=== PATIENT | male | born 1955 | race African-American/Black ===

== ENCOUNTER 2016-03-08 18:24 | Emergency (ER) | payer BC ==
[2016-03-08 18:43] VITALS: BP 165/95; PULSE 85; TEMP 98.6; BMI 40.1
--- NOTE | 2016-03-08 19:12 | PDOC ---
History of Present Illness <Sulaiman Melgoza - Last Filed: 03/08/16 19:10> - History of Present Illness Initial Comments: 03/08/16 19:12 The patient is a 60 year old male with a past medical hx of HTN who presents to the ED for evaluation of elevated blood pressure since today. The patient states he ran out of his blood pressure medication 2 weeks ago and has not been able to refill his prescription. He states he went to his Doctor today and his blood pressure was elevated. The patient was sent to the ED for further evaluation. He states he has no symptoms. The patient denies changes in vision, chest pain, palpitations The patient denies headache, ankle swelling The patient denies SOB, wheezing Surgical: Knee replacement (15 years ago), foot surgery Family hx: HTN, mother had a weak heart Social: No toxic habits reported Allergies: NKDA <Samaria Dallas - Last Filed: 03/08/16 19:28> - General Chief Complaint: Blood Pressure Problem Stated Complaint: HIGH BLOOD PRESSURE Time Seen by Provider: 03/08/16 19:08 Past History - Past Medical History Diabetes: Yes (NO MEDS. DIET CONTROLLED.) HTN: Yes Suicide Attempt (Hx): No - Surgical History Orthopedic Surgery: Yes (b/l knee replacement) - Psycho/Social/Smoking Cessation Hx Anxiety: Yes Suicidal Ideation: No Smoking Status: No Smoking History: Never smoked Number of Cigarettes Smoked Daily: 0 Information on smoking cessation initiated: No Hx Alcohol Use: No Drug/Substance Use Hx: No Substance Use Type: None Hx Substance Use Treatment: No <Sulaiman Melgoza - Last Filed: 03/08/16 19:10> <Samaria Dallas - Last Filed: 03/08/16 19:28> - Past Medical History Allergies/Adverse Reactions: Allergies Allergy/AdvReac Type Severity Reaction Status Date / Time No Known Allergies Allergy Verified 03/08/16 18:27 Home Medications: Ambulatory Orders Aspirin Coated [Ecotrin -] 81 mg PO DAILY 10/11/12 Doxepin HCl 10 mg PO HS 10/11/12 Fluphenazine HCl 10 mg PO HS 10/11/12 Hydrochlorothiazide [Hctz -] 25 mg PO DAILY 10/11/12 Losartan Potassium [Cozaar -] 100 mg PO DAILY 10/11/12 Temazepam [Restoril -] 30 mg PO HS 10/11/12 Alprazolam [Alprazolam ER] 0.5 mg PO QID 10/21/12 Paroxetine HCl [Paxil] 30 mg PO HS 10/21/12 Metoprolol Succinate [Toprol Xl -] 0 mg PO DAILY 03/08/16 Metoprolol Succinate [Toprol Xl -] 25 mg PO DAILY #7 tab.sr.24h 03/08/16 Rosuvastatin Calcium 0 mg PO 03/08/16 Review of Systems - Review of Systems Able to Perform ROS?: Yes Is the patient limited Mongolian proficient: No Constitutional: No: Symptoms Reported HEENTM: No: Symptoms Reported Respiratory: No: Symptoms reported Cardiac (ROS): No: Symptoms Reported Neurological: No: Symptoms reported All Other Systems: Reviewed and Negative <Sulaiman Melgoza - Last Filed: 03/08/16 19:10> - Review of Systems Able to Perform ROS?: Yes <Samaria Dallas - Last Filed: 03/08/16 19:28> *Physical Exam - Vital Signs Last Vital Signs Temp Pulse Resp BP Pulse Ox 98.6 F 85 18 165/95 98 03/08/16 18:33 03/08/16 18:33 03/08/16 18:33 03/08/16 18:33 03/08/16 18:33 <Sulaiman Melgoza - Last Filed: 03/08/16 19:10> - Vital Signs Last Vital Signs Temp Pulse Resp BP Pulse Ox 98.6 F 85 18 165/95 98 03/08/16 18:33 03/08/16 18:33 03/08/16 18:33 03/08/16 18:33 03/08/16 18:33 - Physical Exam Comments: 03/08/16 19:14 GENERAL: The patient is in no acute distress. HEAD: Normal with no signs of trauma. EYES: PERRLA, sclera anicteric, conjunctiva clear. ENT: oropharynx clear without exudates. Moist mucous membranes. NECK: supple without lymphadenopathy, JVD, or masses. LUNGS: Breath sounds equal, clear to auscultation bilaterally. No wheezes, and no crackles. HEART:Regular rate and rhythm, normal S1 and S2 without murmur, rub or gallop. ABDOMEN: Soft, normoactive bowel sounds. EXTREMITIES: no edema. NEUROLOGICAL: Normal speech. No focal neurological deficits. <Samaria Dallas - Last Filed: 03/08/16 19:28> *DC/Admit/Observation/Transfer - Discharge Dispostion Admit: No <Sulaiman Melgoza - Last Filed: 03/08/16 19:10> - Attestations Scribe Attestion: 03/08/16 19:13 Documentation prepared by Samaria Dallas, acting as medical care evaluation specialist for Sulaiman Melgoza MD/DO. <Samaria Dallas - Last Filed: 03/08/16 19:28> Diagnosis at time of Disposition: HTN (hypertension) Qualifiers: Hypertension type: essential hypertension Qualified Code(s): I10 - Essential ( primary) hypertension - Discharge Dispostion Disposition: HOME Condition at time of disposition: Fair - Prescriptions Prescriptions: Metoprolol Succinate [Toprol Xl -] 25 mg PO DAILY #7 tab.sr.24h - Patient Instructions Additional Instructions: CALL YOUR INSURANCE FOR NEW DOCTOR AND MAKE AN APPOINTMENT RETURN IF NEW SYMPTOMS TAKE MEDICATIONS PRESCRIBED
== END 2016-03-08 19:33 | disposition home or self-care (01) ==
LOC: FER 18:24
DX: I10 Essential (primary) hypertension (principal); Z96.653 Presence of artificial knee joint, bilateral
CPT/HCPCS: 99281-25

== ENCOUNTER 2017-02-14 17:51 | Emergency (ER) | payer BC ==
[2017-02-14 17:58] VITALS: BP 152/85; PULSE 60; TEMP 97.8; BMI 34.8
[2017-02-14] MEDS ORDERED: KETOROLAC TROMETHAMINE 60 MG/2 ML VIAL IM ONE (18:00)
--- NOTE | 2017-02-14 18:00 | PDOC ---
History of Present Illness - General Chief Complaint: Pain, Acute Stated Complaint: LEFT SIDE/BACK PAIN Time Seen by Provider: 02/14/17 17:52 - History of Present Illness Initial Comments: 02/14/17 18:28 Chief complaint: Low back pain History of present illness: Patient complains of left low back pain, left sacral area, worse when lying directly on the area. 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 Review of systems: There is no radiation of the pain to the legs, no distal numbness or tingling. There is no dysuria, frequency, urgency, hesitancy, or hematuria. There is no abdominal pain, nausea, vomiting, diarrhea, chest pain, shortness of breath, visual or focal neurologic symptoms, or limited ambulation , unsteady gait. Past medical history: High blood pressure, elevated cholesterol, controlled with medication. Social/family history reviewed and noncontributory Physical exam: Alert and oriented 3, well-developed well-nourished, no acute distress, cheerful and cooperative. Patient appears to be adequate the ambulating without significant pain or limitation. He complains of pain in the left sacral area, predominantly with certain bending movements and with lying on the left side. Afebrile, vital signs stable HEENT clear Neck supple without bruit mass or nodes Chest clear. No rib cage or chest wall tenderness or deformity CV regular without murmur rub or gallop Abdomen soft nontender without mass or organomegaly. Nondistended with normal bowel sounds Neurological C2 to 12 intact. Strength full and symmetric. No focal sensory or motor deficits. Gait stable and unimpaired Extremities no CCE Musculoskeletal: There is mild straightening of the normal lumbar lordosis. There is no point tenderness or inflammation of the lumbosacral spine. There is no tenderness in the CVA, or low back. There is full range of motion of the hips without pain. Pulses are full. No distal sensory or motor deficits in the lower extremities. Impression: Low back strain, muscle spasm, most likely aggravated by weight lifting/bodybuilding exercises Plan: CBC, chemistries, urinalysis. Analgesics and muscle relaxants. Observation. Further medical evaluation and treatment depending on results. Past History - Past Medical History Allergies/Adverse Reactions: Allergies Allergy/AdvReac Type Severity Reaction Status Date / Time No Known Allergies Allergy Verified 02/14/17 17:52 Home Medications: Ambulatory Orders Aspirin Coated [Ecotrin -] 81 mg PO DAILY 10/11/12 Rosuvastatin Calcium 10 mg PO DAILY 03/08/16 Cyclobenzaprine HCl [Flexeril -] 10 mg PO TID #21 tablet 02/14/17 Metoprolol Succinate [Toprol Xl -] 50 mg PO DAILY 02/14/17 COPD: No Diabetes: Yes (NO MEDS. DIET CONTROLLED.) HTN: Yes Hypercholesterolemia: Yes - Surgical History Orthopedic Surgery: Yes (b/l knee replacement) - Suicide/Smoking/Psychosocial Hx Smoking Status: No Smoking History: Never smoked Number of Cigarettes Smoked Daily: 0 Hx Alcohol Use: No Drug/Substance Use Hx: No Substance Use Type: None Hx Substance Use Treatment: No *Physical Exam - Vital Signs Last Vital Signs Temp Pulse Resp BP Pulse Ox 97.8 F 60 20 152/85 100 02/14/17 17:52 02/14/17 17:52 02/14/17 17:52 02/14/17 17:52 02/14/17 17:52 ED Treatment Course - LABORATORY CBC & Chemistry Diagram: 02/14/17 18:10 02/14/17 18:10 Medical Decision Making - Medical Decision Making Patient was administered Toradol and Flexeril with good response. Pain was improved. CBC and chemistries were drawn, urinalysis was sent,. Patient awaiting results. Signed out to Dr. Corbin pending further laboratory evaluation and disposition 7 PM. *DC/Admit/Observation/Transfer Diagnosis at time of Disposition: Left flank pain, Elevated CPK - Discharge Dispostion Disposition: HOME Condition at time of disposition: Stable - Prescriptions Prescriptions: Cyclobenzaprine HCl [Flexeril -] 10 mg PO TID #21 tablet - Referrals - Patient Instructions Additional Instructions: As discussed it is important that you stay well hydrated and drink 8-10 8 ounce glasses of water a day for the next 2-3 days. Follow-up with your doctor in 48 hours to have your CPK repeated to make sure it is improved and your kidney function repeated to make sure it is still normal. No working out or intense exercise until you had to CPK and kidney function repeated, For the pain you can take ibuprofen or Aleve as directed on the bottle, In addition to that I'm giving you a muscle relaxant that you can take 3 times a day. The muscle relaxant will make you drowsy so do not drive or do anything that requires your concentration if you take the muscle relaxant during the day, Return to the emergency department immediately with ANY new, persistent or worsening symptoms. Continue any medications as previously prescribed by your physician. You should follow up with your primary doctor as soon as possible regarding today's emergency department visit. . Please make sure your doctor reviews the results of your emergency evaluation. Thank you for coming to the Emergency Department today for your care. It was a pleasure to see you today. Please note that your evaluation is INCOMPLETE until you follow-up with your doctor. - Post Discharge Activity
[2017-02-14] MEDS ORDERED: CYCLOBENZAPRINE HCL 10 MG TABLET (FP) PO ONE (18:01)
[2017-02-14] MEDS ORDERED: KETOROLAC TROMETHAMINE 60 MG/2 ML VIAL ONE (18:11)
[2017-02-14] MEDS ORDERED: CYCLOBENZAPRINE HCL 10 MG TABLET (FP) ONE (18:11)
[2017-02-14 18:27] LABS: BASO % 0.6 % (0-2.0); MCH 30.6 pg (25.7-33.7); MCHC 33.6 g/dl (32.0-35.9); MEAN CELL VOLUME 91.1 fl (80-96); NEUT % 65.7 % (42.8-82.8); PLATELET COUNT 243 K/MM3 (134-434); RDW 12.4 % (11.9-15.9); WHITE BLOOD COUNT 6.3 K/mm3 (4.0-10.8)
[2017-02-14 19:03] LABS: URINE APPEARANCE Clear; URINE BILIRUBIN Negative (NEGATIVE); URINE GLUCOSE (UA) Negative (NEGATIVE); URINE KETONE Negative (NEGATIVE); URINE LEUK ESTERASE Negative (NEGATIVE); URINE NITRITE Negative (NEGATIVE); URINE PROTEIN Negative (NEGATIVE)
[2017-02-14 19:04] LABS: URINE BLOOD Trace-intact (NEGATIVE); URINE COLOR YELLOW
[2017-02-14 19:38] LABS: URINE WBC 0-2 (0-2)
[2017-02-14 19:39] LABS: URINE BACTERIA FEW /hpf (NEGATIVE)
[2017-02-14 20:31] LABS: ALBUMIN 4.3 g/dl (3.5-5.0); ALK PHOS 80 U/L (32-92); ANION GAP 10 (8-16); BILIRUBIN,TOTAL 0.5 mg/dl (0.2-1.0); CALCIUM 9.5 mg/dl (8.4-10.2); CO2 22 mmol/L (22-28); CREATININE 1.2 mg/dl (0.6-1.3); GLUCOSE,RANDOM 82 mg/dl (74-106); SGOT/AST 33 U/L (10-42); SGPT/ALT 27 U/L (10-40); TOT PROT 7.2 g/dl (6.4-8.3)
[2017-02-14] MEDS ORDERED: CYCLOBENZAPRINE HCL 5 MG TABLET PO STA (20:40)
--- NOTE | 2017-02-14 20:48 | PDOC ---
*Physical Exam - Vital Signs Last Vital Signs Temp Pulse Resp BP Pulse Ox 97.8 F 60 20 152/85 100 02/14/17 17:52 02/14/17 17:52 02/14/17 17:52 02/14/17 17:52 02/14/17 17:52 ED Treatment Course - LABORATORY CBC & Chemistry Diagram: 02/14/17 18:10 02/14/17 18:10 - ADDITIONAL ORDERS Additional order review: Laboratory Results 02/14/17 02/14/17 02/14/17 19:26 18:10 18:10 Sodium 138 Potassium 4.1 D Chloride 106 Carbon Dioxide 22 Anion Gap 10 BUN 21 H D Creatinine 1.2 Creat Clearance w eGFR > 60 Random Glucose 82 D Calcium 9.5 Total Bilirubin 0.5 AST 33 ALT 27 Alkaline Phosphatase 80 Creatine Kinase 755 H Creatine Kinase Index 1.6 CK-MB (CK-2) 12.1 H Total Protein 7.2 Albumin 4.3 Urine Color Yellow Urine Appearance Clear Urine pH 7.0 Ur Specific [place] 1.020 Urine Protein Negative Urine Glucose (UA) Negative Urine Ketones Negative Urine Blood Trace-intact H Urine Nitrite Negative Urine Bilirubin Negative Urine Urobilinogen 1.0 Ur Leukocyte Esterase Negative Urine RBC 2-4 Urine WBC 0-2 Urine Bacteria Few 02/14/17 18:10 RBC 4.71 MCV 91.1 MCHC 33.6 RDW 12.4 MPV 9.0 D Neutrophils % 65.7 Lymphocytes % 25.7 D Monocytes % 6.0 Eosinophils % 2.0 Basophils % 0.6 - Medications Given in the ED: ED Medications Discontinued Medications Generic Name Dose Route Start Last Admin Trade Name Otonielq PRN Reason Stop Dose Admin Cyclobenzaprine HCl 10 mg 02/14/17 18:01 02/14/17 18:14 Flexeril - PO 02/14/17 18:02 10 mg ONCE ONE Administration Ketorolac Tromethamine 60 mg 02/14/17 18:00 02/14/17 18:14 Toradol Injection - IM 02/14/17 18:01 60 mg ONCE ONE Administration Progress Note - Progress Note Progress Note: Care of this patient was transferred to in from Dr. Shah at 1900 hrs. This is a 61-year-old male who developed left sided pain post an intense workout yesterday. Patient is not taken anything for the pain. Patient has a workup pending including labs CBC and comp I will add a CPK to rule out rhabdo Patient was given Toradol here in the emergency room for the pain. 20:45 Assessment and plan: This is a 61-year-old male who comes in complaining of left-sided pain after an intense workout. Pain is worse with movement and worse with certain positions. There is no radiation to the pain. There is no midline or back pain. Patient denies any urinary complaints or history of kidney stones in the past. Patient did have a trace amount of blood in his urine and his CPK was also mildly elevated at 750. Patient most likely has a small amount of rhabdo secondary to his intense workout. However there is also a chance that the patient could have a kidney stone. Given the nature of the pain which appears to be skeletal muscle and the mild degree of pain I will treat patient for skeletal muscle origin/mild rhabdomyolysis Patient was instructed to drink 8-10 glasses of water a day for the next 2-3 days. Patient was told he should follow-up with his primary care doctor and have his CPK repeated in 24 hours just to make sure it is improved. Patient was also given a muscle relaxant here in the emergency room. Patient discharged home. *DC/Admit/Observation/Transfer Diagnosis at time of Disposition: Left flank pain, Elevated CPK - Discharge Dispostion Disposition: HOME Condition at time of disposition: Stable Admit: No - Prescriptions Prescriptions: Cyclobenzaprine HCl [Flexeril -] 10 mg PO TID #21 tablet - Referrals - Patient Instructions Additional Instructions: As discussed it is important that you stay well hydrated and drink 8-10 8 ounce glasses of water a day for the next 2-3 days. Follow-up with your doctor in 48 hours to have your CPK repeated to make sure it is improved and your kidney function repeated to make sure it is still normal. No working out or intense exercise until you had to CPK and kidney function repeated, For the pain you can take ibuprofen or Aleve as directed on the bottle, In addition to that I'm giving you a muscle relaxant that you can take 3 times a day. The muscle relaxant will make you drowsy so do not drive or do anything that requires your concentration if you take the muscle relaxant during the day, Return to the emergency department immediately with ANY new, persistent or worsening symptoms. Continue any medications as previously prescribed by your physician. You should follow up with your primary doctor as soon as possible regarding today's emergency department visit. . Please make sure your doctor reviews the results of your emergency evaluation. Thank you for coming to the Emergency Department today for your care. It was a pleasure to see you today. Please note that your evaluation is INCOMPLETE until you follow-up with your doctor. - Post Discharge Activity
== END 2017-02-14 20:49 | disposition home or self-care (01) ==
LOC: FER 17:51
PROC: 3E0233Z Introduction of Anti-inflammatory into Muscle, Percutaneous Approach (ICD-10-PCS; principal; 2017-02-14)
DX: R10.32 Left lower quadrant pain (principal); R94.8 Abnormal results of function studies of other organs and systems; I10 Essential (primary) hypertension; E78.00 Pure hypercholesterolemia, unspecified; R73.03 Prediabetes
CPT/HCPCS: 36415; 80053; 81003; 81015; 82550; 82553; 85025; 99283-25

== ENCOUNTER 2019-12-08 06:00 | Day surgery (SDC) | payer BC ==
[2019-12-05 11:07] VITALS: BMI 35.5
[2019-12-08 06:28] LABS: EPI CELLS 25 /uL (0-25.1); HYALINE CASTS 3 /uL (0-3.1); URINE APPEARANCE CLEAR; URINE BACTERIA 1367 /uL (0-1359); URINE BILIRUBIN NEGATIVE (NEGATIVE); URINE COLOR YELLOW; URINE GLUCOSE (UA) NEGATIVE (NEGATIVE); URINE KETONE NEGATIVE (NEGATIVE); URINE LEUK ESTERASE 2+ (NEGATIVE); URINE NITRITE NEGATIVE (NEGATIVE); URINE PROTEIN NEGATIVE (NEGATIVE); URINE RBC 16 /uL (0-23.9); URINE WBC 284 /uL (0-25.8)
[2019-12-08 06:30] LABS: INR 0.99 (0.83-1.09); PROTHROMBIN TIME (PATIENT) 11.7 SEC (9.7-13.0)
[2019-12-08 06:33] LABS: ACTIVATED PTT 38.9 SECONDS (25.2-36.5)
[2019-12-08] MEDS ORDERED: LIDOCAINE HCL 1%, 10 MG/ML (20ML VIAL) ONE (07:35)
[2019-12-08] MEDS ORDERED: LIDOCAINE HCL 2% 100 MG/5 ML DISP.SYRIN ONE (07:58)
[2019-12-08] MEDS ORDERED: PROPOFOL 20 ML ONE (07:58)
[2019-12-08] MEDS ORDERED: DEXAMETHASONE SOD PHOSPHATE 4 MG/1 ML VIAL ONE (07:58)
[2019-12-08] MEDS ORDERED: ceFAZolin SODIUM 1 GM VIAL ONE (07:58)
[2019-12-08] MEDS ORDERED: MIDAZOLAM HCL 2 MG/2 ML SINGLE DOSE VIAL ONE ×2 (07:58)
[2019-12-08] MEDS ORDERED: ePHEDrine SULFATE 50 MG/1 ML AMPULE ONE (07:59)
[2019-12-08] MEDS ORDERED: SUCCINYLCHOLINE CHLORIDE 200 MG/10 ML SYRINGE ONE (07:59)
--- NOTE | 2019-12-08 08:12 | HP ---
[facility]ellite [facility] - Chief Complaint Chief Complaint: right hand pain, numbness, weakness, tingling History of Present Illness: right CTS History Source: Patient Limitations to Obtaining History: No Limitations - Past Medical History Allergies/Adverse Reactions: Allergies Allergy/AdvReac Type Severity Reaction Status Date / Time No Known Allergies Allergy Verified 12/05/19 11:07 - Current Medications Current Medications: Home Medications Medication Instructions Recorded Aspirin Coated [Ecotrin -] 81 mg PO DAILY 10/11/12 Amlodipine Besylate 5 mg PO DAILY 12/05/19 Atorvastatin Ca [Lipitor] 40 mg PO HS 12/05/19 Gabapentin 300 mg PO BID 12/05/19 Losartan/Hydrochlorothiazide 1 each PO DAILY 12/05/19 [Losartan-Hctz 100-25 mg Tab] Zolpidem Tartrate 10 mg PO HS 12/05/19 Satellite Physical Exam - Physical Examination Vital Signs: Vital Signs Period Temp Pulse Resp BP Sys/Fleming Pulse Ox Last 24 Hr 97.8 F 70 20 152/93 98-98 General Appearance: Well Nourished ENT: Clear Lung: Clear to auscultation Heart: Regular rate & rhythm Breasts: Soft Abdomen: Soft Extremities: No edema Satellite Impression/Plan - Impression/Plan Impression: right CTS Operative Procedure: right CTR Date to be Performed: 12/08/19
[2019-12-08] MEDS ORDERED: ceFAZolin SODIUM 1 GM VIAL IVPB ONE (08:20)
[2019-12-08] MEDS ORDERED: BUPIVACAINE HCL/PF 0.5% (5 MG/ML) 30 ML VIAL IJ ONE ×2 (08:35)
[2019-12-08] MEDS ORDERED: LIDOCAINE HCL 1%, 10 MG/ML (20ML VIAL) INF ONE (08:35)
--- NOTE | 2019-12-08 09:19 | OP ---
Operative Note - Note: Operative Date: 12/08/19 Pre-Operative Diagnosis: right CTS Operation: right CTR, tenosynovectomy Post-Operative Diagnosis: Same as Pre-op Surgeon: Dagoberto Turner Anesthesiologist/MEDICAL RECORDS SECRETARY: Bernardino Pascal Anesthesia: Local, MAC Specimens Removed: tenosynovium Estimated Blood Loss (mls): 0 Drains, Volume Out (mls): 0 Blood Volume Replaced (mls): 0 Fluid Volume Replaced (mls): 700 Operative Report Dictated: Yes
--- NOTE | 2019-12-08 10:24 | SPEC ---
DATE OF OPERATION: 12/08/2019 PREOPERATIVE DIAGNOSIS: Right carpal tunnel syndrome and tenosynovitis. POSTOPERATIVE DIAGNOSIS: Right carpal tunnel syndrome and tenosynovitis. PROCEDURE: Right carpal tunnel release and tenosynovectomy. SURGEON: Dagoberto Turner MD ASSISTANTS: None. ANESTHESIOLOGIST: Bernardino Pascal MD ANESTHESIA: MAC anesthesia, local injection of 20 mL 0.5% Marcaine and 1% lidocaine mix. DRAINS: None. COMPLICATIONS: None. SPECIMEN: Tenosynovium, right wrist. BLOOD LOSS: None. BLOOD GIVEN: None. FLUID REPLACEMENT: Plasma-Lyte 700 mL. INDICATION: This patient is a 64-year-old male with a preoperative diagnosis of severe right carpal tunnel syndrome and tenosynovitis. After understanding the potential risks, complications, alternatives and benefits of surgery versus nonsurgical treatment he elected to undergo this procedure. He understands he may not get complete relief of his symptoms including a continuation of the numbness, weakness and pain. DESCRIPTION OF PROCEDURE: The patient was brought to the operating room, peripheral IV placed and intravenous sedation was given. He received 2 g of intravenous Ancef. MAC anesthesia was induced. A tourniquet was applied to the right upper arm and the right upper extremity was prepped and draped in sterile fashion. The entire case was done under 3.8 loupe magnification. A marking pen was utilized to jennifer out a longitudinal incision in an already existing skin crease. Twenty mL of 0.5% Marcaine mixed with 1% Lidocaine was injected in and around the surgical incision. The right upper extremity was elevated, exsanguinated with an Esmarch bandage and the tourniquet inflated to 250 mmHg. A No. 15 scalpel blade was utilized to cut down through the skin. Subcutaneous hemostasis was achieved with the bipolar cautery. Dissection was done through the superficial palmar fascia. Self-retaining retractors were placed into the wound. Under direct visualization, the transverse carpal ligament was transected with a No. 15 scalpel blade, exposing the median nerve and the contents of the carpal tunnel. The distal and proximal extents of the release were completed with a Littler scissor and checked with irrigation and my small finger. They were seen to be complete. Limited dissection was done on the radial side of the median nerve and more extensive dissection was done on the ulnar side of the median nerve. The patients nerve was seen to be quite compressed by epineurium and therefore a limited epineurotomy was performed. A Ragnell retractor was used to gently retract the median nerve in a radial direction. The patient had a lot of tenosynovitis and therefore a tenosynovectomy was performed off all 9 flexor tendons. This was passed off the field as tenosynovium right wrist. The floor of the carpal tunnel was checked. There were no abnormal masses or ganglion cysts. The area was copiously irrigated and washed out and closure begun. Undyed 4-0 Vicryl was used to close the deep dermal layer. Final skin reapproximation was done with horizontal mattress 4-0 nylon sutures. The area was then washed and dried, covered with Xeroform, 4x4s, fluffs between the fingers, Webril and a 4-inch plaster roll was utilized to make a volar splint, which was then wrapped with Veronica and Coban. The tourniquet was taken down after a total tourniquet time of 32 minutes. There were no complications during the case. The patient tolerated the procedure well and was brought to the ambulatory recovery room in stable condition. Bonnie [id number]
[2019-12-08 10:47] VITALS: BP 129/71; PULSE 64; TEMP 97.8
--- NOTE | 2019-12-10 15:59 | PATH ---
Surgical Pathology Report Patient Name: CARLOS EDUARDO ESTRELLA Med. Rec. #: [id number] /Age/Gender: 1955 (Age: 64) / M Account: [id number] [facility] Taken: 12/08/2019 Received: 12/08/2019 Reported: 12/10/2019 Physicians: Dagoberto Turner M.D. Specimen(s) Received TENOSYNOVIUM Clinical History Carpal tunnel syndrome right Final Diagnosis TENOSYNOVIUM, EXCISION: TENOSYNOVIAL TISSUE WITH FOCAL FIBROSIS. Electronically Signed Ines Francois M.D. Gross Description Received in formalin labeled "tenosynovium," is a 2.7 x 1.7 x 0.3 cm aggregate of jacobsen-yellow portions of soft tissue, consistent with tenosynovium. The specimen is submitted in toto in one cassette. DL/12/08/2019 saudi/12/08/2019
== END 2019-12-08 10:10 | disposition home or self-care (01) ==
LOC: JASU-SURG 06:00
PROVIDERS: ATTEND Orthopaedic Surgery
PROC: 01N50ZZ Release Median Nerve, Open Approach (ICD-10-PCS; principal; 2019-12-08 08:00)
DX: G56.01 Carpal tunnel syndrome, right upper limb (principal); E11.9 Type 2 diabetes mellitus without complications
CPT/HCPCS: 36415; 81003; 85610; 85730; 88304-TC

== ENCOUNTER 2020-03-28 04:51 | Emergency (ER) | payer BC ==
[2020-03-28 05:08] VITALS: BP 163/89; PULSE 80; TEMP 98.5; BMI 35.5
== END 2020-03-28 05:30 | disposition home or self-care (01) ==
LOC: FER 04:51
DX: R19.8 Other specified symptoms and signs involving the digestive system and abdomen (principal)
CPT/HCPCS: 99281-25

== ENCOUNTER 2021-04-07 06:12 | Day surgery (SDC) | payer BC ==
[2021-04-05 19:28] VITALS: BMI 36.9
[2021-04-07] MEDS ORDERED: TROPICAMIDE 1% OPHTH SOLN 15 ML BOTTLE OS ONE ×3 (06:45→07:05)
[2021-04-07] MEDS ORDERED: KETOROLAC TROMETHAMINE 0.5% EYE DROP 1 DROP DROPS OS ONE ×3 (06:45→07:05)
[2021-04-07] MEDS ORDERED: PHENYLEPHRINE 2.5% OPHTH SOLN 15 ML BOTTLE OS ONE ×3 (06:45→07:05)
[2021-04-07] MEDS ORDERED: DICLOFENAC SODIUM 0.1% OPHTHALMIC 2.5ML BOTTLE OS ONE ×3 (06:45→07:05)
[2021-04-07] MEDS ORDERED: CIPROFLOXACIN HCL 0.3% OPHTH 2.5ML BOTTLE OS ONE ×3 (06:45→07:05)
[2021-04-07] MEDS ORDERED: BUPIVACAINE HCL 100 ML ONE (07:17)
[2021-04-07] MEDS ORDERED: LIDOCAINE HCL 1%, 10 MG/ML (20ML VIAL) ONE (07:17)
[2021-04-07] MEDS ORDERED: PROPOFOL 20 ML ONE (07:33)
[2021-04-07] MEDS ORDERED: MIDAZOLAM HCL 2 MG/2 ML SINGLE DOSE VIAL ONE ×2 (07:33→07:54)
[2021-04-07 09:18] VITALS: PULSE 61; TEMP 97.4
[2021-04-07 09:22] VITALS: BP 116/69
== END 2021-04-07 09:25 | disposition home or self-care (01) ==
LOC: FASU 06:12
PROVIDERS: ATTEND Orthopaedic Surgery
PROC: 0LB80ZZ Excision of Left Hand Tendon, Open Approach (ICD-10-PCS; 2021-04-07)
PROC: 01N50ZZ Release Median Nerve, Open Approach (ICD-10-PCS; principal; 2021-04-07 08:10)
DX: G56.02 Carpal tunnel syndrome, left upper limb (principal); M65.9 Synovitis and tenosynovitis, unspecified
CPT/HCPCS: 88304-TC